=== PATIENT | male | born 1990 | race Caucasian/White ===

== ENCOUNTER 2018-03-21 11:12 | Emergency (ER) | payer OTHER ==
[2018-03-21 12:34] LABS: HEPATITIS B SURFACE ANTIGEN NEGATIVE (NEGATIVE)
[2018-03-21 12:51] LABS: HEPATITIS C VIRAL ANTIBODY NEGATIVE (NEGATIVE); HIV 1&2 ANTIBODY NEGATIVE (NEGATIVE)
[2018-03-21 13:06] LABS: HEPATITIS B SURFACE ANTIBODY NEGATIVE (NEGATIVE)
== END 2018-03-21 13:35 | disposition home or self-care (01) ==
LOC: FTE 11:12
DX: S51.832A Puncture wound without foreign body of left forearm, initial encounter (principal); W46.0XXA Contact with hypodermic needle, initial encounter; Y92.89 Other specified places as the place of occurrence of the external cause
CPT/HCPCS: 86703; 86706; 86803; 87340; 99283